=== PATIENT | male | born 1970 ===

== ENCOUNTER 2018-06-27 23:33 | Emergency (ER) | payer MEDICAID ==
[2018-06-27 23:37] VITALS: RESP 18
--- NOTE | 2018-06-28 00:45 | ED PDOC ---
HPI: Psych/Substance Abuse Time Seen by Provider: 06/27/18 23:45 Chief Complaint (Nursing): Alcohol Ingestion Chief Complaint (Provider): Alcohol intoxication, nasal injury History Per: Patient History/Exam Limitations: intoxication Additional Complaint(s): Giuliano Ford, a 47 year old male with unknown past medical history limited due to intoxication, presents to the emergency department with alcohol intoxication and a nasal injury. Patient states he tripped and fell and injured his nose. He denies any other injury or drug use. No further medical complaints. Past Medical History Reviewed: Historical Data, Nursing Documentation, Vital Signs, Unable To Obtain (intoxication) Vital Signs: Last Vital Signs Temp 98.8 F 06/27/18 23:34 Pulse 88 06/27/18 23:34 Resp 18 06/27/18 23:34 BP 122/83 06/27/18 23:34 Pulse Ox 99 06/27/18 23:34 - Family History Family History: States: Unknown Family Hx - Allergies Allergies/Adverse Reactions: Allergies Allergy/AdvReac Type Severity Reaction Status Date / Time Penicillins Allergy RASH Verified 06/27/18 23:39 Review of Systems ROS Statement: Except As Marked, All Systems Reviewed And Found Negative ENT: Positive for: Other (nasal injury) Psych: Positive for: Other (alcohol intoxication) Physical Exam - Reviewed Nursing Documentation Reviewed: Yes Vital Signs Reviewed: Yes - Physical Exam Appears: Positive for: Well, Non-toxic, No Acute Distress Head Exam: Positive for: ATRAUMATIC, NORMAL INSPECTION, NORMOCEPHALIC Eye Exam: Positive for: EOMI, Normal appearance, PERRL ENT: Positive for: Other (abrasion to nasal bridge, no bony abnormalities) Neck: Positive for: Normal, Painless ROM Cardiovascular/Chest: Positive for: Regular Rate, Rhythm Respiratory: Positive for: Normal Breath Sounds. Negative for: Respiratory Distress Gastrointestinal/Abdominal: Positive for: Normal Exam, Soft Back: Positive for: Normal Inspection Extremity: Positive for: Normal ROM Neurologic/Psych: Positive for: Alert, Oriented, Other (intoxicated appearing). Negative for: Motor/Sensory Deficits - ECG O2 Sat by Pulse Oximetry: 99 (RA) Pulse Ox Interpretation: Normal Medical Decision Making Medical Decision Making: Time: 23:45 A/P: 47 year old male with alcohol intoxication and nasal injury - abrasion cleaned and dressed by nurse, no laceration repair needed, will obtain CT anticipate discharge afterward --Head CT w/o contrast --Maxillofacial CT w/o contrast 0100 --CT's negative --Patient awake, alert, steady gait --Stable for discharge Scribe Attestation: Documented by Shell Avila, acting as a scribe for Luca Thakur MD. Provider Scribe Attestation: All medical record entries made by the Scribe were at my direction and personally dictated by me. I have reviewed the chart and agree that the record accurately reflects my personal performance of the history, physical exam, medical decision making, and the department course for this patient. I have also personally directed, reviewed, and agree with the discharge instructions and disposition. Disposition - Clinical Impression Clinical Impression: Alcohol abuse - Patient ED Disposition Is Patient to be Admitted: No - Disposition Referrals: Alcoholics Anonymous [Outside] Disposition: Routine/Home Disposition Time: 01:30 Condition: IMPROVED Instructions: Alcohol Abuse and Alcoholism (DC) Forms: Business e via [place] [employer] ([employer])
[2018-06-28 02:38] VITALS: BP 120/89; PULSE 100; TEMP 97.6; O2SAT 99
--- NOTE | 2018-06-28 12:36 | CT ---
Date of service: 06/28/2018 PROCEDURE: CT HEAD WITHOUT CONTRAST. HISTORY: intox, head injury COMPARISON: None available. TECHNIQUE: Axial computed tomography images were obtained through the head/brain without intravenous contrast. Radiation dose: Total exam DLP = 646.73 mGy-cm. This CT exam was performed using one or more of the following dose reduction techniques: Automated exposure control, adjustment of the mA and/or kV according to patient size, and/or use of iterative reconstruction technique. FINDINGS: HEMORRHAGE: No intracranial hemorrhage. BRAIN: Kaur-white matter differentiation is preserved. There is no mass, mass effect or abnormal extra-axial fluid collection. There is no territorial infarction. The midline sagittal structures are normal. VENTRICLES: The ventricles are normal in size, shape and configuration. CALVARIUM: There is no calvarial fracture or extracranial soft tissue swelling. PARANASAL SINUSES: Predominantly clear. MASTOID AIR CELLS: Predominantly clear. OTHER FINDINGS: None. IMPRESSION: No acute intracranial abnormality. A preliminary report was provided by [facility].
--- NOTE | 2018-06-28 12:36 | CT ---
Date of service: 06/28/2018 PROCEDURE: CT MAXILLOFACIAL BONES WITHOUT CONTRAST HISTORY: intox, head injury COMPARISON: None available. TECHNIQUE: Contiguous axial CT images of the maxillofacial bones were obtained. Coronal and sagittal reformats were generated. Radiation dose: Total exam DLP = 745.23 mGy-cm. This CT exam was performed using one or more of the following dose reduction techniques: Automated exposure control, adjustment of the mA and/or kV according to patient size, and/or use of iterative reconstruction technique. FINDINGS: NASAL BONES: No acute fracture. There is an old fracture deformity in the left anterior nasal bone. ORBITS: The globes are symmetric. No retro bulbar or intra bulbar hemorrhage. The lens are normally located. No acute orbital fracture. PARANASAL SINUSES/ MASTOIDS: Mild mucosal thickening in the left maxillary sinus. The remaining included paranasal sinuses are clear. MAXILLA: No acute maxillofacial fracture is pleural. MANDIBLE/ TEMPOROMANDIBULAR JOINTS: Unremarkable. SKULL BASE: Unremarkable. TEMPORAL BONES: Middle ears and mastoid grossly unremarkable. OTHER FINDINGS: None. IMPRESSION: No acute maxillofacial fracture. A preliminary report was provided by [facility].
== END 2018-06-28 02:38 | disposition home or self-care (01) ==
LOC: H.ER 23:33
DX: F10.129 Alcohol abuse with intoxication, unspecified (principal); S00.31XA Abrasion of nose, initial encounter; W18.30XA Fall on same level, unspecified, initial encounter; Z88.0 Allergy status to penicillin

== ENCOUNTER 2018-06-28 11:31 | Emergency (ER) | payer MEDICAID ==
[2018-06-28] MEDS ORDERED: Tdap Vaccine 0.5 ml Vial (10-64 yrs) IM ONE (12:36)
== END 2018-06-28 12:50 | disposition home or self-care (01) ==
LOC: H.EDDOWN 11:31
DX: S50.311A Abrasion of right elbow, initial encounter (principal); W19.XXXA Unspecified fall, initial encounter; Z23 Encounter for immunization

== ENCOUNTER 2019-02-13 08:47 | Emergency (ER) | payer MEDICAID ==
[2019-02-13 08:52] VITALS: RESP 17; O2SAT 98; BMI 22.8
--- NOTE | 2019-02-13 09:20 | ED PDOC ---
HPI: General Adult <Kemar Morales III - Last Filed: 02/13/19 11:22> Additional Complaint(s): 48 y/o M presents to ED c/o SOB that began 3 days ago. Pt explains he is coughing yellowish thick sputum for 3 days, has chills, nasal congestion and chest congestion that aggravated earlier today. Pt smokes 2 ppd. Pt ran out of Albuterol 4 days ago. Pt denies headache, dizziness chest pain, SOB, abdominal pain, N/V/D. PMD: Dr Maria De Jesus Otto Allergy: Penicillin Meds: Albuterol and Flonase PMHx: Childhood asthma PSHx: denied FHx: NC SHx: Smokes 2 ppd, smoker for 30 years. Alcohol, 2 cans of beer daily. Denies rec drug use. <Kareem Soler - Last Filed: 02/13/19 11:31> Time Seen by Provider: 02/13/19 09:01 Supervising Attending Note - Attestation: I have personally seen and examined this patient.: Yes I have fully participated in the care of the patient.: Yes I have reviewed all pertinent clinical information, including history, physical exam and plan: Yes - Notes: Notes:: 48YO male smoker w childhood asthma now w productive cough, wheeze. Nodule seen on CXR Explained results in thai and italian, does not want to wait for CT here, has PMD Dr Otto, will make appt this week for eval and outpatient CT chest. Rx azithro, albuterol and prednisone. <Kemar Morales III - Last Filed: 02/13/19 11:22> Past Medical History Vital Signs: Last Vital Signs Temp 98.4 F 02/13/19 08:49 Pulse 90 02/13/19 08:49 Resp 17 02/13/19 08:49 BP 126/85 02/13/19 08:49 Pulse Ox 98 02/13/19 09:47 <Kemar Morales III - Last Filed: 02/13/19 11:22> Vital Signs: Last Vital Signs Temp 98.4 F 02/13/19 08:49 Pulse 90 02/13/19 08:49 Resp 17 02/13/19 08:49 BP 126/85 02/13/19 08:49 Pulse Ox 98 02/13/19 08:49 - Medical History PMH: Asthma - Surgical History Surgical History: No Surg Hx - Family History Family History: States: Unknown Family Hx - Social History Current smoker - smoking cessation education provided: Yes Drugs: Denies <Kareem Soler - Last Filed: 02/13/19 11:31> - Home Medications Home Medications: Ambulatory Orders Medication Instructions Recorded Albuterol HFA [Ventolin HFA 90 1 - 2 puff IH Q4 PRN #1 inhaler 02/13/19 mcg/actuation (8 g)] Azithromycin [Zithromax] 250 mg PO DAILY #6 tab 02/13/19 Prednisone 50 mg PO DAILY #4 tab 02/13/19 - Allergies Allergies/Adverse Reactions: Allergies Allergy/AdvReac Type Severity Reaction Status Date / Time Penicillins Allergy RASH Verified 06/27/18 23:39 Review of Systems Constitutional: Positive for: Chills. Negative for: Sweats ENT: Positive for: Nose Congestion. Negative for: Ear Pain, Ear Discharge, Nose Discharge Cardiovascular: Negative for: Chest Pain, Palpitations Respiratory: Positive for: Cough, Shortness of Breath Gastrointestinal: Negative for: Nausea, Vomiting, Constipation Genitourinary Male: Negative for: Dysuria, Frequency Musculoskeletal: Negative for: Neck Pain, Back Pain Skin: Negative for: Rash Neurological: Negative for: Weakness, Numbness <Kareem Soler Last Filed: 02/13/19 11:31> Physical Exam - Physical Exam Appears: Positive for: Well Head Exam: Positive for: ATRAUMATIC, NORMAL INSPECTION Eye Exam: Positive for: EOMI, PERRL ENT: Positive for: Nasal Congestion. Negative for: Pharyngeal Erythema, Tonsillar Exudate, Tonsillar Swelling Neck: Positive for: Normal, Painless ROM, Supple Cardiovascular/Chest: Positive for: Regular Rate, Rhythm Respiratory: Positive for: Decreased Breath Sounds. Negative for: Accessory Muscle Use, Crackles, Wheezing Gastrointestinal/Abdominal: Positive for: Soft. Negative for: Tenderness, Distended, Guarding Extremity: Positive for: Normal ROM. Negative for: Tenderness Neurological/Psych: Positive for: Awake, Alert, Oriented <Kareem Soler Last Filed: 02/13/19 11:31> - ECG O2 Sat by Pulse Oximetry: 98 <Kareem Soler - Last Filed: 02/13/19 11:31> Medical Decision Making Medical Decision Making: At 09:45 --Albuterol Neb ordered --PO Prednisone ordered --CXR ordered At 11:15 --CXR reviewed, showed NO active pulmonary disease. Small nodule suggested the mid to inferior right lung zone laterally for which follow-up chest CT vis advised electively. --Pt anxiously wants to leave, has to deal with some family issues. --Pt feeling better. No more coughing. --Pt was extensively counseled on the diagnosis of pulmonary nodule and urgent need to follow up. Pt reported understanding. --Pt stable, tolerating PO, is discharged home with Rx for Albuterol inhaler, short course of PO Prednisone and Azithromycin. Pt instructed to f/u with PCP within 1 week and advised to have CT Chest performed as outpatient. . <Kareem Soler - Last Filed: 02/13/19 11:31> Disposition <Kemar Morales III - Last Filed: 02/13/19 11:22> - Patient ED Disposition Is Patient to be Admitted: No Counseled Patient/Family Regarding: Studies Performed, Diagnosis, Need For Followup, Rx Given, Smoking Cessation - Disposition Disposition: Routine/Home Disposition Time: 11:30 <Kareem Soler - Last Filed: 02/13/19 11:31> - Clinical Impression Clinical Impression: Bronchitis - Disposition Condition: STABLE Additional Instructions: FOLLOWUP WITH YOUR PRIMARY DOCTOR FOR OUTPATIENT CT OF CHEST FOR SMALL NODULE SEEN IN YOUR RIGHT LUNG. THIS IS IMPORTANT BECAUSE OF YOUR SMOKING HISTORY, THIS COULD BE AN EARLY CANCER AND DETECTION IS VITAL TO YOUR HEALTH, AND POSSIBLY LIFE. ------- SEGUIMIENTO CON WOODY MDICO DE CABECERA PARA LA TOMOGRAFA AMBULATORIA DE TRAX PARA UN NDULO PEQUEO QUE SE OBSERVA EN EL PULMN DERECHO. ESTO ES IMPORTANTE DEBIDO A WOODY HISTORIAL DE TABAQUISMO, ESTO PODRA SER UN CNCER PRECOZ Y LA DETECCIN ES VITAL PARA WOODY SANJANA, Y POSIBLEMENTE LA LOKESH. Prescriptions: Albuterol HFA [Ventolin HFA 90 mcg/actuation (8 g)] 1 - 2 puff IH Q4 PRN #1 inhaler PRN Reason: Shortness Of Breath Azithromycin [Zithromax] 250 mg PO DAILY #6 tab Prednisone 50 mg PO DAILY #4 tab Instructions: Quitting Smoking for Older Adults, Smoking: Not Just Harmful to Your Lungs and Heart, Acute Bronchitis Print Language: FRISIAN
[2019-02-13] MEDS ORDERED: Albuterol 0.083% Inhal Sol (2.5 mg/3 mL) UD INH ONE (09:39)
[2019-02-13] MEDS ORDERED: Albuterol 0.083% Inhal Sol (2.5 mg/3 mL) UD ONE (10:02)
--- NOTE | 2019-02-13 10:37 | RAD ---
Date of service: 02/13/2019 HISTORY: Cough, SOB, smoker COMPARISON: No prior. TECHNIQUE: Chest PA and lateral views FINDINGS: LUNGS: No acute infiltrate bilaterally. A nodular density is seen at the mid to inferior right lung zone laterally, only in the frontal projection, overlapped with the right 6th rib likely representing pulmonary nodule or artifact. This is too lateralized to represent a nipple shadow. Follow-up CT of the Chest advised for further characterization. Left chest is clear. PLEURA: No significant pleural effusion identified. No pneumothorax apparent. CARDIOVASCULAR: No aortic atherosclerotic calcification present. Normal cardiac size. No pulmonary vascular congestion. OSSEOUS STRUCTURES: No significant abnormalities. VISUALIZED UPPER ABDOMEN: Normal. OTHER FINDINGS: None. IMPRESSION: No acute cardiopulmonary disease appreciated bilaterally. Small nodule suggested the mid to inferior right lung zone laterally for which follow-up chest is advised electively. PA review assigned.
[2019-02-13 19:34] VITALS: BP 129/76; PULSE 76; TEMP 98.1
== END 2019-02-13 11:30 | disposition home or self-care (01) ==
LOC: H.ER 08:47
DX: J40 Bronchitis, not specified as acute or chronic (principal); F17.210 Nicotine dependence, cigarettes, uncomplicated; Z88.0 Allergy status to penicillin

== ENCOUNTER 2019-02-15 00:48 | Emergency (ER) | payer MEDICAID ==
[2019-02-15 00:49] VITALS: BMI 22.8
[2019-02-15] MEDS ORDERED: Albuterol-Ipratrop 3 mg / 0.5 (3 ml) UD IH STA (01:30)
--- NOTE | 2019-02-15 01:33 | ED PDOC ---
HPI: CCC, URI, Sore Throat Time Seen by Provider: 02/15/19 01:22 Chief Complaint (Nursing): Cough, Cold, Congestion Chief Complaint (Provider): cough History Per: Patient History/Exam Limitations: no limitations Onset/Duration Of Symptoms: Days (3) Current Symptoms Are (Timing): Still Present Additional Complaint(s): 48 y/o male history of asthma, bipolar disorder presents for evaluation of cough x 3 days. Patient states cough productive of yellow sputum. Patient states he was evaluated here 2 days ago for same, and was told there was a "nodule" on his chest xray and was advised to have a CT chest but patient had to leave at that time. Patient states since then he has been worried about that finding. Patient reports cough still present, but improving. Denies fever, nausea/vomiting, chest pain, shortness of breath, palpitations, leg pain/swelling. Patient smokes 2 packs per day, but states now he is cutting down to 1. Past Medical History Reviewed: Historical Data, Nursing Documentation, Vital Signs Vital Signs: Last Vital Signs Temp 98.1 F 02/15/19 01:19 Pulse 87 02/15/19 01:19 Resp 17 02/15/19 01:19 BP 124/84 02/15/19 01:19 Pulse Ox 98 02/15/19 01:19 Primary Care Provider: FAMILY PROVIDER,NO - Medical History PMH: Asthma, Bipolar Disorder - Family History Family History: States: Unknown Family Hx - Social History SMOKER/PACKS PER DAY:: 1 Alcohol: > 2 Drinks/Day Drugs: Denies - Home Medications Home Medications: Ambulatory Orders Medication Instructions Recorded Albuterol HFA [Ventolin HFA 90 1 - 2 puff IH Q4 PRN #1 inhaler 02/13/19 mcg/actuation (8 g)] Azithromycin [Zithromax] 250 mg PO DAILY #6 tab 02/13/19 Prednisone 50 mg PO DAILY #4 tab 02/13/19 - Allergies Allergies/Adverse Reactions: Allergies Allergy/AdvReac Type Severity Reaction Status Date / Time Penicillins Allergy RASH Verified 02/15/19 01:21 Review of Systems Respiratory: Positive for: Cough, Sputum Physical Exam - Reviewed Nursing Documentation Reviewed: Yes Vital Signs Reviewed: Yes - Physical Exam Appears: Positive for: Well, Non-toxic, No Acute Distress Head Exam: Positive for: ATRAUMATIC, NORMAL INSPECTION, NORMOCEPHALIC Skin: Positive for: Normal Color Eye Exam: Positive for: Normal appearance ENT: Positive for: Normal ENT Inspection Cardiovascular/Chest: Positive for: Regular Rate, Rhythm Respiratory: Positive for: Normal Breath Sounds Gastrointestinal/Abdominal: Positive for: Normal Exam Back: Positive for: Normal Inspection Extremity: Positive for: Normal ROM Neurological/Psych: Positive for: Awake, Alert, Oriented (x3) - ECG O2 Sat by Pulse Oximetry: 98 - Progress ED Course And Treament: -duoneb -CT chest CT SCAN OF THE CHEST WITHOUT IV CONTRAST CLINICAL INDICATION: SMALL NODULE NOTED ON CXR (Hx) TECHNIQUE: Axial and reformatted sagittal and coronal images of the chest obtained without IV contrast administration. COMPARISON: 02/13/2019 10:12 AM EDT: CR\\SD: CHEST TWO VIEWS (PA/LAT). FINDINGS: The described nodule on the chest x-ray at the level of the anterior intercostal space between the right fourth and fifth ribs is secondary to nipple shadow. No pulmonary nodule or mass lesion is noted. Mild emphysema. Mild chronic bronchitis. Normal unenhanced main pulmonary artery and right and left pulmonary arteries. Normal bilateral peripheral pulmonary arteries. Normal thoracic aorta and visualized great vessels. There is no demonstrated aortic aneurysm. Normal heart and pericardium. Normal mediastinum. Normal hilar regions. Normal visualized trachea. The lungs are well expanded. Normal pleura. Normal chest wall structures. Normal osseous structures. Normal visualized upper abdomen. IMPRESSION: The described nodule on the chest x-ray at the level of the anterior intercostal space between the right fourth and fifth ribs is secondary to nipple shadow. No pulmonary nodule or mass lesion is noted. Mild emphysema. Mild chronic bronchitis. Patient educated on findings, advised to continue current medications Educated on smoking cessation Follow up PMD within 2-3 days Return precautions given Disposition - Clinical Impression Clinical Impression: Bronchitis - Patient ED Disposition Is Patient to be Admitted: No Counseled Patient/Family Regarding: Studies Performed, Diagnosis, Need For Followup, Smoking Cessation - Disposition Disposition: Routine/Home Disposition Time: 03:48 Condition: IMPROVED Instructions: Acute Bronchitis
[2019-02-15 05:01] VITALS: BP 121/80; PULSE 81; RESP 18; TEMP 98.4; O2SAT 99
--- NOTE | 2019-02-15 11:11 | CT ---
Date of service: 02/15/2019 PROCEDURE: CT Chest without contrast HISTORY: small nodule noted on chest xray COMPARISON: Plain radiographs from 02/13/2019. TECHNIQUE: Contiguous axial images were obtained through the chest without intravenous contrast enhancement. Sagittal and coronal reconstructions were performed. Radiation dose: Total exam DLP = 234.59 mGy-cm. This CT exam was performed using one or more of the following dose reduction techniques: Automated exposure control, adjustment of the mA and/or kV according to patient size, and/or use of iterative reconstruction technique. FINDINGS: LUNGS: There is mild pulmonary hyperinflation. There is paraseptal emphysema in the lung apices, worse on the right. There is scattered centrilobular emphysema in the lungs. There is linear atelectasis/scarring in the left lung base. There is no evidence for suspicious pulmonary nodule, mass or consolidation. There are no endobronchial lesions. The questioned nodular opacity in the peripheral right mid lung on plain radiographs performed on 02/13/2029 corresponds to nipple shadow. No parenchymal nodule identified. MEDIASTINUM: Unremarkable thoracic aorta. No aneurysm. Normal sized heart. Main pulmonary artery unremarkable. No vascular congestion. No lymphadenopathy. No aortic atherosclerotic calcification. PLEURA: No pleural fluid. No pneumothorax. BONES: No fracture. No destructive lesion. Within normal limits for the patient's age. UPPER ABDOMEN: Grossly unremarkable. OTHER FINDINGS: None. IMPRESSION: 1. No evidence for parenchymal nodule in the lungs. The questioned opacity overlying the peripheral mid lung on the plain radiographs corresponds to nipple shadow. 2. Paraseptal emphysema in the lung apices, worse on the right and scattered centrilobular emphysema in the lungs. A preliminary report was provided by [facility].
== END 2019-02-15 03:55 | disposition home or self-care (01) ==
LOC: H.ER 00:48
DX: J40 Bronchitis, not specified as acute or chronic (principal)

== ENCOUNTER 2019-02-15 14:38 | Emergency (ER) | payer MEDICAID ==
[2019-02-15 14:39] VITALS: BMI 22.8
[2019-02-15 15:05] VITALS: BP 123/74; PULSE 102; RESP 18; TEMP 98.3; O2SAT 99
--- NOTE | 2019-02-15 15:52 | ED PDOC ---
HPI: Psych/Substance Abuse Time Seen by Provider: 02/15/19 15:18 Chief Complaint (Nursing): Psychiatric Evaluation Chief Complaint (Provider): Psychiatric Evaluation History Per: Patient, Vascular Technician (Corrinemarquise Castillo #[id number]) History/Exam Limitations: no limitations Onset/Duration Of Symptoms: Days (x5) Current Symptoms Are (Timing): Still Present Additional Complaint(s): 48 year old male presents to the ED for a psychiatric evaluation. Patient states he has been feeling depressed since he was kicked out of his living situation five days ago having to since live on the streets. He notes that he has associated suicidal ideation with a plan to either harm his face or walk in front of a car, homicidal ideation towards his uncle, and has been hearing voices that tell him to harm himself. Patient reports a history of bipolar disorder (last dose of psych meds one month ago) and says he was hospitalized in the past for similar feelings 1 year ago in [facility]. As per patient, he was here a couple days ago for "fatigue and not feeling well, requiring oxygen" but has since improved. Denies other complaints. PMD: Tristan Otto Past Medical History Reviewed: Historical Data, Nursing Documentation, Vital Signs Vital Signs: Last Vital Signs Temp 98.3 F 02/15/19 14:59 Pulse 102 H 02/15/19 14:59 Resp 18 02/15/19 14:59 BP 123/74 02/15/19 14:59 Pulse Ox 99 02/15/19 14:59 Primary Care Provider: FAMILY PROVIDER,NO - Medical History PMH: Asthma, Bipolar Disorder - Family History Family History: States: Unknown Family Hx - Living Arrangements Living Arrangements: Other (homeless) - Social History Current smoker - smoking cessation education provided: Yes Alcohol: Other (last drink yesterday, frequent drinker) Drugs: Cannabis (in past), Other (crack in past) - Home Medications Home Medications: Ambulatory Orders Medication Instructions Recorded Albuterol HFA [Ventolin HFA 90 1 - 2 puff IH Q4 PRN #1 inhaler 02/13/19 mcg/actuation (8 g)] Azithromycin [Zithromax] 250 mg PO DAILY #6 tab 02/13/19 Prednisone 50 mg PO DAILY #4 tab 02/13/19 - Allergies Allergies/Adverse Reactions: Allergies Allergy/AdvReac Type Severity Reaction Status Date / Time Penicillins Allergy RASH Verified 02/15/19 01:21 Review of Systems ROS Statement: Except As Marked, All Systems Reviewed And Found Negative Psych: Positive for: Depression, Suicidal ideation (with plan to harm face or walk in front of a car), Other (homicidal ideation towards uncle; auditory hallucinations telling him to hurt himself; no visual hallucinations) Physical Exam - Reviewed Nursing Documentation Reviewed: Yes Vital Signs Reviewed: Yes - Physical Exam Comments: GENERAL APPEARANCE: Patient is awake, alert, oriented x 3, in no acute distress. SKIN: Warm, dry; (-) cyanosis HEAD: atraumatic, normocephalic EYES: EOMI, PERRLA ENMT: Mucous membranes moist. NECK: (-) tenderness, (+) full ROM HEART AND CARDIOVASCULAR: RRR CHEST AND RESPIRATORY: breath sounds equal and non-labored. ABDOMEN: Soft, (-) distention, (-) tenderness, (-) guarding. NEURO AND PSYCH: Mental status as above. Affect: flat networking technician: Intact. Pupils equal and reactive; (-) facial asymmetry; tongue and uvula midline - Laboratory Results Result Diagrams: 02/15/19 15:50 02/15/19 15:50 - ECG O2 Sat by Pulse Oximetry: 99 (RA) Pulse Ox Interpretation: Normal Medical Decision Making Medical Decision Making: Time: 1534 Initial Impression: psychiatric evaluation Initial Plan: --Patient placed on 1:1 --Crisis referral --Alcohol serum --CMP --Drug screen --CBC with differential --Accucheck --Urinalysis 17:34 pt seen by crisis screened and cleared for dc, Dr. Cuellar, diagnosis adjustment disorder, instructions for follow up put in discharge by crisis screener Scribe Attestation: Documented by Chloe Gibbons, acting as a scribe for Raghu Neda-Roga, PA-C. Provider Scribe Attestation: All medical record entries made by the Scribe were at my direction and personally dictated by me. I have reviewed the chart and agree that the record accurately reflects my personal performance of the history, physical exam, medical decision making, and the department course for this patient. I have also personally directed, reviewed, and agree with the discharge instructions and disposition. Disposition - Clinical Impression Clinical Impression: Adjustment disorder - Patient ED Disposition Is Patient to be Admitted: No Counseled Patient/Family Regarding: Studies Performed, Diagnosis, Need For Followup - Disposition Referrals: as, listed [Other] Disposition: Routine/Home Disposition Time: 17:34 Condition: STABLE Additional Instructions: CONTINUE TO FOLLOW UP AT [facility] FOR PENITENTIARY PLACEMENT [facility] [address] [facility] [address] [place] [address] FOR MEDICAL/MENTAL HEALTH AND SOCIAL SERVICE NEEDS FOLLOW UP WITH [facility] [address] [place] [address] Instructions: Adjustment Disorder Print Language: FAROESE - POA Present On Arrival: None
[2019-02-15 16:08] LABS: ALB/GLOB RATIO 1.3 (1.0-2.1); ALBUMIN 4.3 g/dL (3.5-5.0); ALT/SGPT 33 U/L (21-72); AST/SGOT 35 U/L (17-59); BLOOD UREA NITROGEN 20 mg/dl (9-20); CALCIUM 8.8 mg/dL (8.4-10.2); GFR NON-AFRICAN AMERICAN > 60
[2019-02-15 16:19] LABS: BASO % 0.3 % (0.0-2.0); HEMOGLOBIN 12.8 g/dL (12.0-18.0); LYMPH # 0.5 K/uL (1.0-4.3); LYMPH % 8.4 % (20.0-40.0); MEAN CELL VOLUME 76.2 fl (80.0-94.0); MEAN CORPUSCULAR HEMOGLOBIN 24.6 pg (27.0-31.0); MEAN CORPUSCULAR HGB CONC 32.2 g/dL (33.0-37.0); MEAN PLATELET VOLUME 8.2 fl (7.2-11.7); MONO # 0.3 K/uL (0.0-0.8); MONO % 4.7 % (0.0-10.0); NEUT # 4.9 K/uL (1.8-7.0); NEUT % 86.6 % (50.0-75.0); PLATELET COUNT 299 K/uL (130-400); RBC 5.22 Mil/uL (4.40-5.90); RED CELL DISTRIBUTION WIDTH 15.4 % (11.5-14.5); WHITE BLOOD COUNT 5.6 K/uL (4.8-10.8)
[2019-02-15 16:30] LABS: BARBITURATES, UR NEGATIVE (NEGATIVE); BENZODIAZEPINES, UR NEGATIVE (NEGATIVE); OPIATES, UR NEGATIVE (NEGATIVE); PHENCYCLIDINE, UR NEGATIVE (NEGATIVE)
[2019-02-15 17:27] LABS: URINE BACTERIA RARE (<OCC); URINE BILIRUBIN SMALL (NEGATIVE); URINE BLOOD NEGATIVE (NEGATIVE); URINE CALCIUM OXALATE CRYSTALS MOD /hpf (<OCC); URINE CLARITY SLIGHTY-CLOUDY (Clear); URINE COLOR AMBER (YELLOW); URINE GLUCOSE (UA) NEG (NEGATIVE); URINE LEUKOCYTE ESTERASE NEG Leu/uL (Negative); URINE PROTEIN 30 mg/dL (NEGATIVE)
[2019-02-15 17:54] LABS: BANDS 1 % (0-2); LYMPHOCYTE 13 % (20-50); MONOCYTE 3 % (0-10); NEUTROPHIL 83 % (42-75); TOTAL CELLS COUNTED 100
[2019-02-15 17:55] LABS: ANISOCYTOSIS SLIGHT; HYPOCHROMIC MODERATE; MICROCYTOSIS MODERATE; PLATELET ESTIMATE NORMAL (NORMAL); POIKILOCYTOSIS SLIGHT
== END 2019-02-15 18:00 | disposition home or self-care (01) ==
LOC: H.ER 14:38
DX: F43.20 Adjustment disorder, unspecified (principal); F17.200 Nicotine dependence, unspecified, uncomplicated; F31.9 Bipolar disorder, unspecified; Z88.0 Allergy status to penicillin; R45.851 Suicidal ideations